=== PATIENT | male | born 1980 | race Caucasian/White ===

== ENCOUNTER 2022-05-05 18:44 | Emergency (ER) | payer OTHER ==
[~2022-05-05] VITALS: Ht 167.6 cm; Wt 90.9 kg
[2022-05-05] MEDS ORDERED: LABE100T51 PO (18:56)
[2022-05-05] MEDS ORDERED: ATOR40TA28 PO (18:56)
[2022-05-05] MEDS ORDERED: LOSA-382 PO (18:56)
[2022-05-05] MEDS ORDERED: DOXYCYCLINE HYCLATE 100 MG TABLET PO ONE (19:45)
[2022-05-05] MEDS ORDERED: CEPHALEXIN MONOHYDRATE 500 MG CAPSULE PO ONE (19:45)
[2022-05-05] MEDS ORDERED: LOSARTAN POTASSIUM 50 MG TABLET PO ONE (20:45)
[2022-05-05] MEDS ORDERED: LABETALOL HCL 100 MG TABLET PO ONE (20:45)
[2022-05-05 21:04] LABS: BASOPHILS % (AUTO) 0.4 % (0.0-2.0); EOSINOPHILS % (AUTO) 2.5 % (1.0-6.0); HEMATOCRIT 45.4 % (41-53); HEMOGLOBIN 16.2 g/dL (13.5-17.5); LYMPHOCYTES # (AUTO) 1.9 K/uL (1.0-4.8); LYMPHOCYTES % (AUTO) 24.6 % (22.0-44.0); MEAN CORPUSCULAR HEMOGLOBIN 30.8 pg (26.0-34.0); MEAN CORPUSCULAR HGB CONC 35.6 G/dL (31.0-37.0); MEAN CORPUSCULAR VOLUME 87 fL (80-100); MONOCYTES # (AUTO) 0.6 K/uL (0.1-1.0); MONOCYTES % (AUTO) 7.7 % (2.0-9.0); NEUTROPHILS % (AUTO) 64.8 % (40.0-70.0); PLATELET COUNT (AUTO) 159 K/uL (150-450); RED BLOOD CELL COUNT(AUTO) 5.25 MIL/uL (4.50-5.90); RED CELL DISTRIBUTION WIDTH 13.7 % (11.5-14.5)
[2022-05-05 21:10] LABS: ANION GAP 10 mmol/L (8-16); CALCIUM, TOTAL 9.2 mg/dL (8.8-10.5); CARBON DIOXIDE 26 mmol/L (22-29); CHLORIDE 105 mmol/L (98-107); CREATININE 1.08 mg/dL (0.60-1.30); GLUCOSE,RANDOM 247 mg/dL (70-110); POTASSIUM 3.9 mmol/L (3.5-5.1); SODIUM SERUM 141 mmol/L (136-145); UREA NITROGEN, BLOOD 21 mg/dL (7-18)
[2022-05-05 21:11] LABS: GLOMERULAR FILTR. RATE CALC > 60 mL/min (>60)
[2022-05-05 21:17] LABS: ALANINE AMINOTRANSFERASE 78 U/L (12-78); ALBUMIN 3.6 g/dL (3.4-5.0); ALKALINE PHOSPHATASE 94 U/L (46-116); ASPARTATE AMINOTRANSFERASE 37 U/L (15-37); BILIRUBIN,TOTAL 0.5 mg/dL (0.1-1.0); TOTAL PROTEIN, SERUM 6.6 g/dL (6.4-8.2)
[2022-05-05] MEDS ORDERED: 0.9% SODIUM CHLORIDE 10 ML SYRINGE IVP PRN (21:45)
[2022-05-05] MEDS ORDERED: ASPIRIN 325 MG TABLET PO ONE (21:45)
[2022-05-05] MEDS ORDERED: NITROGLYCERIN 2% (1 GM=INCH) PACKET TP ONE (21:45)
[2022-05-05 22:05] VITALS: BP 214/126
== END 2022-05-05 22:34 | disposition left against medical advice (07) ==
LOC: EMS 18:45
DX: I21.4 Non-ST elevation (NSTEMI) myocardial infarction (principal); L03.011 Cellulitis of right finger; E11.65 Type 2 diabetes mellitus with hyperglycemia; R77.8 Other specified abnormalities of plasma proteins; I10 Essential (primary) hypertension; F17.210 Nicotine dependence, cigarettes, uncomplicated; Z79.899 Other long term (current) drug therapy
CPT/HCPCS: 80053; 84484; 85025; 93005; 99291